=== PATIENT | female | born 1970 | race Caucasian/White ===

== ENCOUNTER 2016-10-16 13:25 | Observation (INO) ==
[2016-10-16] MEDS ORDERED: Magnesium Sulfate 20 gm/500mL 20 GM/500 ML IV.SOLN IVC SCH (14:00)
[2016-10-16 14:03] LABS: Basophils % 0.1 %; Eosinophils # 0.1 K/mcL (0.0-0.6); Eosinophils % 0.6 %; Hematocrit 38.5 % (35.3-44.9); Hemoglobin 13.2 g/dL (11.5-15.4); Immature Granulocytes % 0.6 % (0-4); Lymphocytes # 1.9 K/mcL (0.6-4.6); Lymphocytes % 13.1 %; Mean Corpuscular HGB Conc 34.3 g/dL (31.6-35.5); Mean Corpuscular Hemoglobin 31.1 pg (28.0-33.3); Mean Corpuscular Volume 90.8 fL (83.0-100.0); Mean Platelet Volume 9.8 fL (9.4-12.4); Monocytes # 0.6 K/mcL (0.0-1.3); Monocytes % 4.3 %; Neutrophils # 11.5 K/mcL (1.6-8.9); Platelet Count 319 K/mcL (140-400); Red Blood Count 4.24 M/mcL (3.82-4.97); Segmented Neutrophils % 81.3 %
[2016-10-16] MEDS ORDERED: Penicillin G Potassium 5,000,000 UNIT in D5% in Water (Mini-Bag+) 100 ML IVPB ONE (14:03)
[2016-10-16] MEDS: *HR* Labetalol 20 MG/4 ML SYRINGE IVP ONE ×2 (14:05→14:35)
[2016-10-16] MEDS ORDERED: Ringers Solution, Lactated 1,000 ML ONE (14:10)
[2016-10-16 14:14] LABS: Protein/Creatinine Ratio,Urine 0.59 mg/mg (0-0.20)
[2016-10-16] MEDS ORDERED: Ringers Solution, Lactated 1,000 ML IVC SCH (14:15)
[2016-10-16 14:17] LABS: Alanine Aminotransferase 11 Units/L (0-55); Aspartate Amino Transferase 12 Units/L (5-34); BUN/Creatinine Ratio 11 (6-26); Blood Urea Nitrogen 7 mg/dL (7-20); Lactate Dehydrogenase 150 Units/L (159-327); Uric Acid 3.7 mg/dL (2.6-6.0); eGFR For African Americans > 60 (> 60); eGFR For Non-African Americans > 60 (> 60)
[2016-10-16] MEDS ORDERED: *HR* Labetalol 20 MG/4 ML SYRINGE IVP ONE ×2 (14:25→14:34)
[2016-10-16] MEDS ORDERED: Betamethasone Acet/SodPhos 6 MG/ML MDV IM SCH (14:30)
--- NOTE | 2016-10-16 14:36 | OB/GYN Progress Note ---
Date of Encounter: 10/16/16 Time of Encounter: 14:31 - Assessment and Plan (1) 33 weeks gestation of Current Visit: Yes Status: Acute (2) Gestational diabetes Current Visit: Yes Status: Acute Qualifiers: Gestational diabetes mellitus control: unspecified Trimester: third trimester Qualified Code(s): O24.419 - Gestational diabetes mellitus in , unspecified control (3) Pre-eclampsia superimposed on chronic hypertension Current Visit: Yes Status: Acute Pt. started on Magnesium Sulfate, Betamethasone, antibiotic. Will transfer to [facility] (4) Tobacco use affecting in third trimester, antepartum Current Visit: Yes Status: Acute (5) Obesity affecting in third trimester Current Visit: Yes Status: Acute (6) Advanced maternal age (AMA), 40 years or greater Current Visit: Yes Status: Acute Subjective - Subjective Interval history: This is a 46-year-old female Ab1 with EDC of 12/01/16 at 33 weeks and 3 days who was sent from the [place] office to labor and delivery for elevated blood pressure. Her blood pressure in [place] was 186/106 and she had 3+ protein in the urine. She is a very high risk with advanced maternal age, gestational diabetes, maternal obesity, chronic hypertension, and the use of tobacco. Her 1 hour glucose tolerance test was elevated at 175, her three- hour glucose tolerance test had elevated 1 hour and 2 hour values. She is not on anything for her diabetes at the present time. She is randomly checking her glucose but admits that she is not following the recommended fasting and 2 hours postprandial testing. Many of her values that she has with her. Elevated. She has seen maternal medicine specialist on at least 2 occasions during this . She was a transfer of care at approximately 24 weeks. Recent ultrasound on 10/01/16 by [facility] noted an estimated weight at the 54th percentile with an JERONIMO of 14. With a vertex presentation. Objective - Vital Signs Vital Signs: Intake and Output 10/15/16 10/16/16 10/16/16 23:59 07:59 15:59 Other: Weight 103 kg Patient Weight 10/16/16 23:59 Weight 103 kg - Exam FHR: auscultation normal FHR comments: Appropriate for gestational age - Labs Labs: Abnormal lab results WBC 14.2 K/mcL (4.3-11.1) H 10/16/16 13:55 Neutrophils # 11.5 K/mcL (1.6-8.9) H 10/16/16 13:55 Lactate Dehydrogenase 150 Units/L (159-327) L 10/16/16 13:55 Protein/Creatinin Ratio 0.59 mg/mg (0-0.20) H 10/16/16 13:55 Urine Total Protein 58 mg/dL (1-14) H 10/16/16 13:55
== END 2016-10-16 15:14 | disposition short-term general hospital (02) ==
LOC: 1NENULAB

== ENCOUNTER 2016-11-15 09:57 | Inpatient (IN) ==
[2016-11-15] MEDS ORDERED: Naloxone 0.4 MG/ML INJ IVP PRN (10:48)
[2016-11-15] MEDS ORDERED: Famotidine 20 MG/2 ML VIAL IVP PRN (10:48)
[2016-11-15] MEDS ORDERED: Ondansetron 4 MG/2 ML VIAL IVP PRN (10:48)
[2016-11-15] MEDS ORDERED: Metoclopramide 10 MG/2 ML VIAL IVP PRN (10:48)
[2016-11-15] MEDS ORDERED: miSOPROStol 25 MCG TABLET VG PRN (10:48)
[2016-11-15] MEDS ORDERED: miSOPROStol 25 MCG TABLET PO PRN (10:58)
[2016-11-15] MEDS ORDERED: Ringers Solution, Lactated 1,000 ML IVC SCH (11:00)
[2016-11-15 11:01] LABS: Basophils % 0.2 %; Eosinophils # 0.1 K/mcL (0.0-0.6); Eosinophils % 0.7 %; Hematocrit 38.5 % (35.3-44.9); Hemoglobin 12.9 g/dL (11.5-15.4); Immature Granulocytes % 0.7 % (0-4); Lymphocytes # 1.5 K/mcL (0.6-4.6); Lymphocytes % 12.3 %; Mean Corpuscular HGB Conc 33.5 g/dL (31.6-35.5); Mean Corpuscular Hemoglobin 30.8 pg (28.0-33.3); Mean Corpuscular Volume 91.9 fL (83.0-100.0); Mean Platelet Volume 10.1 fL (9.4-12.4); Monocytes # 0.5 K/mcL (0.0-1.3); Platelet Count 259 K/mcL (140-400); Red Blood Count 4.19 M/mcL (3.82-4.97); Red Cell Distribution Width 14.8 % (11.5-14.5); Segmented Neutrophils % 82.1 %
[2016-11-15 11:13] LABS: BUN/Creatinine Ratio 15 (6-26); Blood Urea Nitrogen 9 mg/dL (7-20); Calcium 9.8 mg/dL (8.6-10.8); Carbon Dioxide 16 mEq/L (19-29); Chloride 108 mEq/L (98-109); Glucose 112 mg/dL (70-99); Osmolality,Calculated 283 (280-300); Potassium 3.7 mEq/L (3.5-4.5); Sodium 137 mEq/L (136-145); eGFR For African Americans > 60 (> 60); eGFR For Non-African Americans > 60 (> 60)
--- NOTE | 2016-11-15 11:36 | Anesthesia Evaluation PreOp ---
Date of Encounter: 11/15/16 Time of Encounter: 11:33 - Past History Planned Operation: brian Cardiac History: HTN Pulmonary History: Smoker (1 pack per day) FIRESTOPPER TECHNICIAN History: Denies Any Significant HX Other Medical History: Diabetes Type II (gestational diabetes, diet control) Anesthesia History: No Prior Anesthetic Complications, Past Anesthesia ([facility]) : Yes ( 37 weeks) Test: Positive Alcohol Use: none Drug use: opiates Medications and Allergies [place] 5-325 mg 5 mg PO PRN PRN 10/16/16 [History] Tablet 1 tab PO DAILY 10/16/16 [History] Labetalol 300 mg PO TID 11/15/16 [History] Procardia XL 30 mg PO DAILY 11/15/16 [History] Allergies No Known Allergies Allergy (Verified 10/16/16 13:38) - Meds/Allergy Pre-op Review Medications Reviewed: Yes Allergies Reviewed: Yes Beta Blockers on Current Med List: Yes (0200) Anesthesia Results - Labs 11/15/16 10:43 11/15/16 10:54 Anesthesia Exam O2 Sat Height 1.68 m Weight 103 kg bp 152/94 hr 86 Height: 66 Weight: 103 - HEENT Pupil (Motor): Pupils equal Mallampati: II Teeth: Normal Oral Opening: Greater than 3 - FIRESTOPPER TECHNICIAN LOC: Oriented FIRESTOPPER TECHNICIAN Motor: Normal RUE, Normal LUE, Normal RLE, Normal LLE, Normal Face FIRESTOPPER TECHNICIAN Sensory: Normal: RUE, LUE, RLE, LLE, Face - Cardiac Rhythm: Regular Murmur: None JVD: No Carotid Bruit: No - Pulmonary Breath Sounds: bilateral Clear Respiratory Effort: Symmetrical Anesthesia Assess/Plan ASA Score: 2 Modified Oksana Scale for Level of Consciousness: Cooperative, oriented, and tranquil Anesthetic Plan: Regional Autologous Blood: No Monitoring Plan: Standard Monitors
[2016-11-15] MEDS ORDERED: Epidural Premix (fent/bupiv) 110 ML EP ONE (14:51)
[2016-11-15] MEDS ORDERED: *HR* Ropivacaine/PF 0.2% 10 ML AMPUL ONE (14:51)
[2016-11-15] MEDS ORDERED: *HR* FentaNYL (PF) 100 MCG/2 ML VIAL ONE (14:51)
[2016-11-15] MEDS ORDERED: *HR* Ropivacaine/PF 0.2% 10 ML AMPUL EP ONE (15:31)
[2016-11-15] MEDS ORDERED: *HR* FentaNYL (PF) 100 MCG/2 ML VIAL EP ONE (15:31)
[2016-11-15] MEDS ORDERED: EPHEDrine 50 MG/ML VIAL IVP PRN (15:31)
--- NOTE | 2016-11-15 15:35 | Anesthesia Procedures ---
Date of Encounter: 11/15/16 Time of Encounter: 15:33 Procedures: Anesthesia - Epidural/Spinal Patient ID/Chart reviewed: Yes Patient examined: Yes OB Eval: : 4 OB Eval: Hx Para: 3 OB Eval: Contractions: Non-stressed pattern Consent Obtained: Yes Supplemental Oxygen: None/Room Air Supplemental Oxygen Rate (L/min): 2 Site Prep: Aseptic Technique Patient position: upright Local Anesthetic: Lidocaine 1% Amount of Local Anesthetic used: 3 Touhy Needle Gauge: 18 Touhy Needle Depth (cm): 6 Catheter Depth at Skin (cm): 12 Test Dose (1.5% Lido + Epi): Volume given (mls): 3 Test Dose Result: Negative Loading Dose: 0.25% Marcaine (mls): 6 Loading Dose: Fentanyl (mcg): 100 Loading Dose: Other: 2ml nss Loading Dose Administered: Thru Touhy Needle Infusion Med: 0.125% Bupivacaine w/ 2 mcg/ml Fentanyl Infusion Rate (mls/hr): [address]: Tegaderm Interspace Used: L3-L4 Loss of Resistance (ANDRY): Yes Blood: No CSF: No Paresthesia: No Procedure: strict asepsis, good ANDRY, FHR unchanged
[2016-11-15] MEDS ORDERED: Epidural Premix (fent/bupiv) 110 ML EP SCH (15:45)
--- NOTE | 2016-11-15 16:55 | OB/GYN History & Physical ---
Date of Encounter: 11/15/16 Time of Encounter: 16:52 Assessment and Plan (1) 37 or more weeks gestation of Current visit: Yes Status: Acute Pt with favorable cervix and worsening htn and proteinuria. Will proceed with induction of labor. Pt aware of risks of prematurity and desires to proceed with induction. (2) Pre-eclampsia superimposed on chronic hypertension Current visit: No Status: Acute History of Present Illness Chief complaint: Here for induction secondary to hypertension and proteinuria HPI: Ms. Allen is a 46 year old female female at 37w3d presents for induction secondary to labile hypertension and proteinuria. Pt with chronic htn that has been increasingly difficult to control. She has been admitted to [facility] and has significant proteinuria. She has been having worsening headaches and lower extremity edema. Past Med Surg Social Fam HX - Past Medical History Source: patient, old records reviewed Medical history: hypertension Psychiatric history: depression - Social History Smoking Status: Current every day smoker Packs per day: 1 Smokeless Tobacco Status: No Alcohol use: none Drug use: opiates - Family History Father Living Status: Still Living Hx Family Endocrine Disorder: Yes (DIABETES) Obstetrical History - Pregnancies : 5 Para: 3 Medications and Allergies [place] 5-325 mg 5 mg PO PRN PRN 10/16/16 [History] Tablet 1 tab PO DAILY 10/16/16 [History] Labetalol 300 mg PO TID 11/15/16 [History] Procardia XL 30 mg PO DAILY 11/15/16 [History] Allergies No Known Allergies Allergy (Verified 10/16/16 13:38) Exam - Constitutional Constitutional: well nourished - HEENT HEENT: EOMI, PERRL - Neck Neck exam: full ROM - Lungs Respiratory exam: CTAB - Cardiovascular Cardiovascular exam: RRR - Extremities Extremities exam: full ROM Deep Tendon Reflex Grade: 2+ Normal - Cervix Dilation: 4 Effacement: 100 Station: -1 - Uterus Uterus exam: Present: enlarged Results Result Diagrams: 11/15/16 10:43 11/15/16 10:54 Abnormal lab results WBC 12.2 K/mcL (4.3-11.1) H 11/15/16 10:43 RDW 14.8 % (11.5-14.5) H 11/15/16 10:43 Neutrophils # 10.0 K/mcL (1.6-8.9) H 11/15/16 10:43 Carbon Dioxide 16 mEq/L (19-29) L 11/15/16 10:54 Glucose 112 mg/dL (70-99) H 11/15/16 10:54 All other labs normal. - VTE Reasons for not Prescribing Prophylaxis: Treatment not Indicated - Low risk for VTE
--- NOTE | 2016-11-15 17:03 | OB Labor Progress Note ---
Date of Encounter: 11/15/16 Time of Encounter: 17:01 Labor Progress Note - Subjective Subjective: Pt comfortable with epidural. - Cervix Cervix: 4/100/-1 - Heart Tones Heart Tones: RNST - Interventions Interventions: AROM clear - Plan Plan: Expect
[2016-11-15] MEDS: Oxytocin 20 units/ LR 1000 mL 20 UNIT/1,000 ML BAG IVC SCH (18:43)
--- NOTE | 2016-11-15 23:01 | OB/GYN Procedure Note ---
Delivery - Delivery Date: 11/15/16 Intrapartum events: none Delivery induction: oxytocin, misoprostol Delivery monitor: external FHT, internal uterine Anesthesia: epidural Estimated Blood Loss: 200 - (s) Infant A Infant Delivery Date: 11/15/16 Infant Delivery Time: 22:31 Presentation: vertex Position: SHABBIR Route of delivery: Gender: Male Viability: Viable Pounds: 6 Ounces: 3 at 1 minute: 8 at 5 mins: 9 Shoulder Dystocia: not encountered Specimens collected: cord blood Placenta: spontaneous Cord: 3 umbilical vessels, delivered through nuchal ( of liveborn male through loose nucal without complication.) - Repair Episiotomy: none Laceration Description: None - Complications Delivery complications: none, uterine atony Delivery comments: Pt was given Cytotec 400 mcg and 25 mg of Hemobate secondary to atony
[2016-11-15] MEDS ORDERED: *HR* Labetalol 20 MG/4 ML SYRINGE IVP ONE (23:22)
[2016-11-15] MEDS: *HR* Labetalol 20 MG/4 ML SYRINGE IVP ONE (23:27)
[2016-11-16] MEDS: Oxytocin 20 units/ LR 1000 mL 20 UNIT/1,000 ML BAG IVC SCH
[2016-11-16] MEDS ORDERED: *HR* Labetalol 20 MG/4 ML SYRINGE IVP ONE ×2 (00:40→00:46)
[2016-11-16] MEDS: *HR* Labetalol 20 MG/4 ML SYRINGE IVP ONE (00:42)
[2016-11-16] MEDS ORDERED: Acetaminophen 325 MG TABLET PO PRN (00:57)
[2016-11-16] MEDS ORDERED: Oxytocin 20 units/ LR 1000 mL 20 UNIT/1,000 ML BAG IVC ONE (00:57)
[2016-11-16] MEDS ORDERED: Rho Immune Globulin 1,500 UNIT SYRINGE IM PRN (00:57)
[2016-11-16] MEDS ORDERED: Oxytocin 20 units/ LR 1000 mL 20 UNIT/1,000 ML BAG IVC SCH (00:57)
[2016-11-16] MEDS ORDERED: Measles/Mumps/Rubella Vacc 0.5 ML VIAL SQ PRN (00:57)
[2016-11-16] MEDS: NIFEdipine XL (24 HR) 30 MG TAB.ER.24 PO SCH (01:34)
[2016-11-16] MEDS: Ibuprofen 600 MG TABLET PO PRN ×3 (02:21→14:58)
[2016-11-16] MEDS: *HR* HYDROcodone/Acet 5/325 mg TABLET PO PRN ×3 (04:30→19:37)
[2016-11-16] MEDS ORDERED: NIFEdipine XL (24 HR) 30 MG TAB.ER.24 PO STA (06:18)
[2016-11-16 06:51] LABS: Alanine Aminotransferase 8 Units/L (0-55); Aspartate Amino Transferase 14 Units/L (5-34); BUN/Creatinine Ratio 11 (6-26); Blood Urea Nitrogen 6 mg/dL (7-20); Lactate Dehydrogenase 177 Units/L (159-327); Uric Acid 3.5 mg/dL (2.6-6.0); eGFR For African Americans > 60 (> 60); eGFR For Non-African Americans > 60 (> 60)
[2016-11-16 07:07] LABS: Basophils % 0.2 %; Eosinophils % 0.1 %; Hematocrit 37.2 % (35.3-44.9); Hemoglobin 12.7 g/dL (11.5-15.4); Immature Granulocytes % 1.4 % (0-4); Lymphocytes # 1.9 K/mcL (0.6-4.6); Lymphocytes % 8.9 %; Mean Corpuscular HGB Conc 34.1 g/dL (31.6-35.5); Mean Corpuscular Volume 90.7 fL (83.0-100.0); Mean Platelet Volume 10.5 fL (9.4-12.4); Monocytes # 0.7 K/mcL (0.0-1.3); Monocytes % 3.1 %; Neutrophils # 18.6 K/mcL (1.6-8.9); Platelet Count 266 K/mcL (140-400); Red Cell Distribution Width 14.8 % (11.5-14.5); Segmented Neutrophils % 86.3 %
[2016-11-16] MEDS ORDERED: miSOPROStol 100 MCG TABLET PO ONE (08:30)
[2016-11-16] MEDS ORDERED: NIFEdipine XL (24 HR) 30 MG TAB.ER.24 PO SCH (09:00)
[2016-11-16] MEDS: Prenatal Vit/FA 1 EACH TABLET PO SCH (09:14)
--- NOTE | 2016-11-16 10:07 | OB/GYN Progress Note ---
Date of Encounter: 11/16/16 Time of Encounter: 10:05 - Assessment and Plan (1) Vaginal delivery Current Visit: Yes Status: Acute Patient meeting milestones (2) Pre-eclampsia superimposed on chronic hypertension Current Visit: No Status: Acute Continue observation. Patient currently well controlled on by mouth medication Subjective - Subjective Principal diagnosis: PPD1 Interval history: The patient is day 1 vaginal delivery, induction for chronic hypertension with superimposed preeclampsia. She denies any headache, blurred vision or epigastric pain. She is requesting medication for perineal discomfort. Patient reports: appetite normal, voiding normally, pain well controlled, ambulating normally : doing well Objective - Latest Vital Signs Latest vital signs: Vital Signs Temp Pulse Resp BP Pulse Ox 11/16/16 07:40 98.1 F 92 18 114/68 97 11/16/16 06:05 82 176/104 11/16/16 03:55 97.9 F 86 16 152/81 97 11/16/16 03:00 16 11/16/16 02:57 98.3 F 84 16 162/96 97 11/16/16 02:26 81 184/127 11/16/16 02:00 97.8 F 78 16 183/125 98 Intake and Output 11/15/16 11/16/16 11/16/16 23:59 07:59 15:59 Intake Total 999 / 999 1 / 1 350 / 350 Output Total 450 / 450 500 / 500 Balance 999 / 999 -449 / -449 -150 / -150 Intake: IV Fluids 999 / 999 1 / 1 Pitocin 20 unit In 1,000 999 / 999 1 / 1 ml @ Titrate IVC .Q0M [facility] Rx#:[id number] Oral 350 / 350 Output: Urine 450 / 450 500 / 500 Other: Stool Size Moderate - Exam Extremities: Present: normal. Absent: tenderness, edema Abdomen: Present: normal appearance, soft. Absent: tenderness Uterus: Present: firm. Absent: bogginess, tenderness Uterus Position: 2 Fingers Below Umbilicus, Midline - Labs Labs: Laboratory Results - last 24 hr 11/15/16 11/15/16 11/16/16 10:43 10:54 06:20 WBC 12.2 H 21.5 H D RBC 4.19 4.10 Hgb 12.9 12.7 Hct 38.5 37.2 MCV 91.9 90.7 MCH 30.8 31.0 MCHC 33.5 34.1 RDW 14.8 H 14.8 H Plt Count 259 266 MPV 10.1 10.5 Immature Gran % 0.7 1.4 Seg Neutrophils % 82.1 86.3 Lymphocytes % 12.3 8.9 Monocytes % 4.0 3.1 Eosinophils % 0.7 0.1 Basophils % 0.2 0.2 Neutrophils # 10.0 H 18.6 H Lymphocytes # 1.5 1.9 Monocytes # 0.5 0.7 Eosinophils # 0.1 0.0 Basophils # 0.0 0.0 Sodium 137 Potassium 3.7 Chloride 108 Carbon Dioxide 16 L BUN 9 Creatinine 0.62 Est GFR ( Amer) > 60 Est GFR (Non-Af Amer) > 60 BUN/Creatinine Ratio 15 Glucose 112 H Calculated Osmolality 283 Uric Acid Calcium 9.8 AST ALT Lactate Dehydrogenase 11/16/16 06:21 WBC RBC Hgb Hct MCV MCH MCHC RDW Plt Count MPV Immature Gran % Seg Neutrophils % Lymphocytes % Monocytes % Eosinophils % Basophils % Neutrophils # Lymphocytes # Monocytes # Eosinophils # Basophils # Sodium Potassium Chloride Carbon Dioxide BUN 6 L Creatinine 0.56 L Est GFR ( Amer) > 60 Est GFR (Non-Af Amer) > 60 BUN/Creatinine Ratio 11 Glucose Calculated Osmolality Uric Acid 3.5 Calcium AST 14 ALT 8 Lactate Dehydrogenase 177 - Allied health notes Allied health notes reviewed: nursing
[2016-11-17] MEDS: *HR* HYDROcodone/Acet 5/325 mg TABLET PO PRN ×3 (03:39→20:53)
[2016-11-17] MEDS: Prenatal Vit/FA 1 EACH TABLET PO SCH (07:46)
[2016-11-17] MEDS: Ibuprofen 600 MG TABLET PO PRN (07:46)
[2016-11-17] MEDS: NIFEdipine XL (24 HR) 30 MG TAB.ER.24 PO SCH (07:47)
--- NOTE | 2016-11-17 10:12 | OB/GYN Progress Note ---
Date of Encounter: 11/17/16 Time of Encounter: 10:10 - Assessment and Plan (1) Vaginal delivery Current Visit: Yes Status: Acute Pt meeting milestones. (2) Pre-eclampsia superimposed on chronic hypertension Current Visit: No Status: Acute BP 186/110 prior to medication this am. Repeat after morning meds 116/73. Pt denies s/sx preeclampsia. Dr. Lacy notified. (3) Chronic prescription opiate use Current Visit: Yes Status: Acute Pt receiving Redbird while inpatient. No rx will be provided on discharge. She will need to follow-up with her PCP. Subjective - Subjective Interval history: Pt reports pain well controlled with Motrin and Redbird. She was on Redbird prior to admission for chronic pain. She denies OLIVIA, vision changes, or RUQ pain. Patient reports: appetite normal, voiding normally, pain well controlled, ambulating normally [place]: doing well, in NICU Objective - Latest Vital Signs Latest vital signs: Vital Signs Temp Pulse Resp BP Pulse Ox 11/17/16 09:28 84 116/73 11/17/16 08:15 97.8 F 90 16 186/110 99 11/17/16 03:41 97.6 F 86 14 155/95 100 11/17/16 00:50 98.0 F 87 12 146/85 99 11/16/16 20:45 82 138/87 11/16/16 19:45 98.4 F 85 12 175/104 98 11/16/16 16:20 98.0 F 88 16 130/88 97 Intake and Output 11/16/16 11/17/16 11/17/16 23:59 07:59 15:59 Intake Total 100 / 100 240 / 240 Balance 100 / 100 240 / 240 Intake: Oral 100 / 100 240 / 240 Other: Meal Breakfast Percent of Meal Consumed 100% # Voids 2 Weight 99.8 kg Patient Weight 11/17/16 23:59 Weight 99.8 kg - Exam Lungs: bilateral: normal Chest: Normal S1, Normal S2 Extremities: Present: edema (mild bilat) Abdomen: Present: soft Uterus: Present: firm - Labs Labs: Laboratory Results - last 24 hr 11/15/16 23:47 POC Glucose 87
[2016-11-17] MEDS ORDERED: Ondansetron ODT 4 MG TAB.RAPDIS SL PRN (22:15)
[2016-11-18] MEDS: Prenatal Vit/FA 1 EACH TABLET PO SCH (07:49)
[2016-11-18] MEDS: NIFEdipine XL (24 HR) 30 MG TAB.ER.24 PO SCH ×2 (07:49→22:13)
[2016-11-18] MEDS: *HR* HYDROcodone/Acet 5/325 mg TABLET PO PRN ×2 (07:49→15:49)
--- NOTE | 2016-11-18 08:11 | OB/GYN Progress Note ---
Date of Encounter: 11/18/16 Time of Encounter: 08:06 - Assessment and Plan (1) Vaginal delivery Current Visit: Yes Status: Acute 1. S/P vaginal delivery Patient doing well. Pain well controlled. Continue current regimen. Anticipate discharge tomorrow. PCP: Dr. Dasha Yousif. 2. Hypertension Chronic benign essential hypertension. Previously (prior to ) on Lisinopril 20mg PO QDaily + HCTZ 12.5mg PO Qdaily. Will adjust her current regimen to: Labetolol 400mg TID, Nicardipine 30mg BID. Vitals Q4hr. May adjust antihypertensive regimen pending repeat BP. 3. Anxiety Previously (prior to ) on xanex 1mg PO BID. She notes return of anxiety symptoms. Will provide PRN while inpatient. 4. Chronic prescription opioid use Home medications of Hydrocodone/APAP 5/325 Q4-6hrs PRN pain + Tizanidine 4mg PO Q8hr PRN muscle spasm. She does not have complaint of muscle spasm. Will continue Hydrocodone/APAP 5/325 Q6 PRN while inpatient. Patient has her prescription at home; no need for outpatient prescription. (2) Hypertension Current Visit: Yes Status: Acute as above Qualifiers: Hypertension type: essential hypertension Qualified Code(s): I10 - Essential (primary) hypertension (3) Anxiety Current Visit: Yes Status: Acute as above (4) Chronic prescription opiate use Current Visit: Yes Status: Acute as above. Subjective - Subjective Principal diagnosis: s/p vaginal delivery Interval history: Mrs. Allen continues to do well. Dieting and toileting without compliant. Ambulating without issue. She notes feelings of anxiety which are intermittantly returning. She was self managing her anxiety without xanex during the by staying at home throughout the day. She was previously medicated on antihypertensive and anxiolytic; unsure of specific medication, dose, or daily administration. She fills her medications at the same pharmacy - [facility] in [place], [place]. Otherwise, she has no complaints. No headache , nausea, dizziness, weakness. No vaginal bleeding or discharge. Baby is doing well; bottle feeding, anticipated pediatric discharge tomorrow. Patient reports: appetite normal, voiding normally, pain well controlled, ambulating normally [place]: doing well, bottle feeding Objective - Latest Vital Signs Latest vital signs: Vital Signs Temp Pulse Resp BP Pulse Ox 11/18/16 03:34 97.7 F 83 16 133/92 96 11/17/16 23:20 97.9 F 86 16 152/89 98 11/17/16 21:59 152/101 11/17/16 20:53 16 166/102 11/17/16 20:40 98.3 F 97 16 177/103 99 11/17/16 15:55 98.5 F 98 18 156/87 11/17/16 14:48 94 131/91 11/17/16 13:46 87 159/100 11/17/16 11:27 98 F 90 16 164/83 11/17/16 09:28 84 116/73 11/17/16 08:15 97.8 F 90 16 186/110 99 Intake and Output 11/17/16 11/18/16 11/18/16 23:59 07:59 15:59 Intake Total 420 / 420 300 / 300 Output Total 900 / 900 1500 / 1500 Balance -480 / -480 -1200 / -1200 Intake: Oral 420 / 420 300 / 300 Output: Urine 900 / 900 1500 / 1500 Other: Meal Dinner Percent of Meal Consumed 100% Weight 100.2 kg Patient Weight 11/18/16 23:59 Weight 100.2 kg - Exam Lungs: bilateral: normal Chest: Normal S1, Normal S2 Extremities: Present: normal Abdomen: Present: normal appearance, soft. Absent: rigidity, gravid, distention Uterus: Present: normal, tenderness Uterus Position: 3 Fingers Below Umbilicus
[2016-11-18] MEDS: ALPRAZolam 1 MG TABLET PO PRN (15:49)
[2016-11-18] MEDS ORDERED: Benzocaine/Menthol 56 GM AEROSOL SPRAY TP ONE (17:34)
[2016-11-19] MEDS: ALPRAZolam 1 MG TABLET PO PRN (03:23)
[2016-11-19] MEDS: Prenatal Vit/FA 1 EACH TABLET PO SCH (08:18)
[2016-11-19] MEDS: NIFEdipine XL (24 HR) 30 MG TAB.ER.24 PO SCH (08:18)
[2016-11-19] MEDS: *HR* HYDROcodone/Acet 5/325 mg TABLET PO PRN (08:20)
[2016-11-19 11:47] VITALS: BP 138/94
--- NOTE | 2016-11-19 14:52 | Internal Medicine Consult Note ---
<Alexandre Bautista - Last Filed: 11/19/16 15:26> Date of Encounter: 11/19/16 Internal Medicine - CN: HPI - Data of Consult Requesting Physician: Clyde Graf MD - Consult Narrative History of present illness: Ms. Allen is a 46 year old female Internal Medicine - CN: Meds [place] 5-325 mg 5 mg PO PRN PRN 10/16/16 [History] Tablet 1 tab PO DAILY 10/16/16 [History] Docusate [Colace] 100 mg PO BID #60 capsule 11/19/16 [Rx] HydrOXYzine Pamoate [Vistaril] 50 mg PO HS PRN #15 capsule 11/19/16 [Rx] Labetalol HCl 400 mg PO TID #180 tablet 11/19/16 [Rx] NIFEdipine XL (24 HR) [Procardia XL] 30 mg PO BID #60 tab.er.24 11/19/16 [Rx] Procardia XL 30 mg PO DAILY #30 11/19/16 [Rx] Allergies No Known Allergies Allergy (Verified 10/16/16 13:38) Internal Medicine - CN: Exam - Constitutional Vitals: Temp Pulse Resp BP Pulse Ox 98.6 F 84 19 138/94 98 11/19/16 11:45 11/19/16 11:45 11/19/16 11:45 11/19/16 11:45 11/19/16 11:45 Internal Medicine - CN: Reslt - Labs CBC & Chem 7: 11/16/16 06:20 11/16/16 06:21 Consult Discharge Plan - Plan Referrals: Clyde Graf MD [Partnered Physician] - Dasha Yousif MD [Primary Care Provider] - Prescriptions: Docusate [Colace] 100 mg PO BID #60 capsule HydrOXYzine Pamoate [Vistaril] 50 mg PO HS PRN #15 capsule PRN Reason: Anxiety Labetalol HCl 400 mg PO TID #180 tablet NIFEdipine XL (24 HR) [Procardia XL] 30 mg PO BID #60 tab.er.24 Procardia XL 30 mg PO DAILY #30 - Attending Attestation I have independently reviewed this patient. I have discussed this patient with MAGGIE Mcdonald, and his documentation reflects the plan of care with the following addendum 46 Y/O F with chronic HTN, 4 days post- with HTN slightly worsened post- , now controlled on home medications. Agree with continuing same medications at home and follow up with her PCP. Rest of details as in kosher sealer documentation. <Deo Mcdonald - Last Filed: 11/19/16 15:46> Date of Encounter: 11/19/16 Time of Encounter: 14:25 - Assessment and Plan (1) Hypertension Current Visit: Yes Status: Chronic Assessment and plan: Assess: Patient has history of essential hypertension which was well-controlled in the past until she reached 33 weeks of . She reports that her hypertension medication was changed at [facility] from methyldopa to procardia XL and labetalol. She experienced elevated BP readings during her admission for labor and delivery , but her BP readings are now trending downward. Patient reports her BP improved once she was given her anxiolytic medication yesterday. Reports she feels much better and more like herself now post-administration of Xanax. Plan: Continue with Procardia and labetalol until she sees her PCP (Dr. Dasha Yousif). Report any adverse effects or incidents to PCP. Follow-up with PCP at next scheduled appt. unless she requires being seen sooner. Continue with anxiolytic. Continue home meds as prescribed. Monitor BP at home, preferably keeping a diary of daily readings. Internal Medicine - CN: HPI - Data of Consult Requesting Physician: Clyde Graf MD - Consult Narrative Reason for consult: BP clearance for discharge History of present illness: Ms. Allen is a 46 year old female who is four days post- with a history of essential hypertension, anxiety, and chronic prescription opioid use for muscle spasms. She has a history during this admission of elevated blood pressure which seems to be resolving after receiving her anxiolytic medication ( Xanax). Her BP is now trending downward and she is expressing the desire to return home. Past Med Surg Social Fam HX - Past Medical History Medical history: hypertension Psychiatric history: anxiety, depression - Past Surgical History Surgical History: no surgical history - Social History Smoking Status: Current every day smoker Packs per day: 1 Smokeless Tobacco Status: No Alcohol use: none Drug use: opiates - Family History Father Living Status: Still Living Hx Family Endocrine Disorder: Yes (DIABETES) All systems: reviewed and no additional remarkable complaints except as stated - EENT Eyes: as per HPI Ears: as per HPI Nose, mouth and throat: as per HPI - Breasts Breasts: as per HPI - Cardiovascular Cardiovascular ROS IM: as per HPI Additional comments: Patient has brief history during admission of elevated BP which may be due to labor and delivery, not taking her anxiolytics, and general anxiety related to post- status. - Respiratory Respiratory: as per HPI - Gastrointestinal Gastrointestinal: as per HPI - Genitourinary Genitourinary: as per HPI - Musculoskeletal Musculoskeletal ROS IM: as per HPI Additional comments: No complaints of muscle spasms at this time. - Integumentary Integumentary IM: as per HPI - Neurological Neurological ROS: as per HPI - Psychiatric Psychiatric: as per HPI - Endocrine Endocrine IM: as per HPI - Hematologic/Lymphatic Hematologic/Lymphatic: as per HPI - Allergic/Immunologic Allergic/Immunologic: as per HPI Internal Medicine - CN: Exam - Constitutional Vitals: Temp Pulse Resp BP Pulse Ox 98.6 F 84 19 138/94 98 11/19/16 11:45 11/19/16 11:45 11/19/16 11:45 11/19/16 11:45 11/19/16 11:45 General appearance IM: Present: cooperative, A&O X 3, pleasant, no acute distress, answers questions appropriately - Head Head exam: Present: atraumatic - Eye Eye exam: Present: normal appearance Pupils: Present: PERRL - ENT ENT exam: Present: normal exam - Neck Neck exam general surgery: Present: normal inspection - Respiratory Additional comments: Patient at ease, no visible distress, and breathing normally on room air. - Cardiovascular Additional comments: Exam normal with regular HR. - Rectal Rectal exam: Present: deferred - Additional comments: exam deferred. - Neurological Exam Neurological exam: Present: alert, oriented X3, no focal deficits - Psychiatric Psychiatric exam: Present: normal affect, normal mood - Skin Skin exam IM: Present: dry, warm Internal Medicine - CN: Reslt - Labs CBC & Chem 7: 11/16/16 06:20 11/16/16 06:21
--- NOTE | 2016-11-19 14:53 | Discharge Summary ---
Date of Encounter: 11/19/16 Time of Encounter: 14:51 - Discharge Diagnosis (1) Vaginal delivery Priority: Primary Status: Acute (2) Pre-eclampsia superimposed on chronic hypertension Priority: Secondary Status: Acute (3) Chronic prescription opiate use Priority: Secondary Status: Acute - Discharge Medications Prescriptions: Docusate [Colace] 100 mg PO BID #60 capsule HydrOXYzine Pamoate [Vistaril] 50 mg PO HS PRN #15 capsule PRN Reason: Anxiety Labetalol HCl 400 mg PO TID #180 tablet NIFEdipine XL (24 HR) [Procardia XL] 30 mg PO BID #60 tab.er.24 Procardia XL 30 mg PO DAILY #30 Home Medications: Vernalis 5-325 mg 5 mg PO PRN PRN 10/16/16 [History] Tablet 1 tab PO DAILY 10/16/16 [History] Docusate [Colace] 100 mg PO BID #60 capsule 11/19/16 [Rx] HydrOXYzine Pamoate [Vistaril] 50 mg PO HS PRN #15 capsule 11/19/16 [Rx] Labetalol HCl 400 mg PO TID #180 tablet 11/19/16 [Rx] NIFEdipine XL (24 HR) [Procardia XL] 30 mg PO BID #60 tab.er.24 11/19/16 [Rx] Procardia XL 30 mg PO DAILY #30 11/19/16 [Rx] Allergies/Adverse Reactions: Allergies No Known Allergies Allergy (Verified 10/16/16 13:38) Data Procedures and tests throughout hospitalization: Laboratory Tests 11/15/16 11/15/16 11/15/16 10:43 10:54 23:47 WBC 12.2 H RBC 4.19 Hgb 12.9 Hct 38.5 MCV 91.9 MCH 30.8 MCHC 33.5 RDW 14.8 H Plt Count 259 MPV 10.1 Immature Gran % 0.7 Seg Neutrophils % 82.1 Lymphocytes % 12.3 Monocytes % 4.0 Eosinophils % 0.7 Basophils % 0.2 Neutrophils # 10.0 H Lymphocytes # 1.5 Monocytes # 0.5 Eosinophils # 0.1 Basophils # 0.0 Sodium 137 Potassium 3.7 Chloride 108 Carbon Dioxide 16 L BUN 9 Creatinine 0.62 Est GFR ( Amer) > 60 Est GFR (Non-Af Amer) > 60 BUN/Creatinine Ratio 15 Glucose 112 H POC Glucose 87 Calculated Osmolality 283 Uric Acid Calcium 9.8 AST ALT Lactate Dehydrogenase 11/16/16 11/16/16 06:20 06:21 WBC 21.5 H D RBC 4.10 Hgb 12.7 Hct 37.2 MCV 90.7 MCH 31.0 MCHC 34.1 RDW 14.8 H Plt Count 266 MPV 10.5 Immature Gran % 1.4 Seg Neutrophils % 86.3 Lymphocytes % 8.9 Monocytes % 3.1 Eosinophils % 0.1 Basophils % 0.2 Neutrophils # 18.6 H Lymphocytes # 1.9 Monocytes # 0.7 Eosinophils # 0.0 Basophils # 0.0 Sodium Potassium Chloride Carbon Dioxide BUN 6 L Creatinine 0.56 L Est GFR ( Amer) > 60 Est GFR (Non-Af Amer) > 60 BUN/Creatinine Ratio 11 Glucose POC Glucose Calculated Osmolality Uric Acid 3.5 Calcium AST 14 ALT 8 Lactate Dehydrogenase 177 Date of admission: 11/15/16 09:57 Primary care physician: Dasha Mohamud Consults: 11/16/16 00:57 Consult to Structural Layout Worker [CONS] Routine Comment: Vaginal delivery, consult needed 11/19/16 06:58 Consult to Hospitalist [CONS] Routine Consulting Provider: Hospitalist Kirsten Reason for Consult: HTN Call Completed: Yes Discharging clinician: Bailee Lutz Anticipated date of discharge: 11/19/16 - Patient Status Disposition: Home, Self-Care Condition: Good Functional capacity at discharge: independent ambulation Overall status at discharge: patient is progressing back to baseline - Discharge Instructions Follow Up With: Dasha Yousif MD [Primary Care Provider] - Clyde Graf MD [Partnered Physician] - - Diet and Activity Activity: increase activity as tolerated Diet: regular diet Hospital Course Reason for admission: induction of labor, pre-eclampsia Delivery: Episiotomy: none Laceration: none Other procedures: none complications: uterine atony, other (hypertension with labile blood pressures) Discharge diagnosis: IUP at term delivered baby: male Hospital course: - Delivery Date: 11/15/16 Intrapartum events: none Delivery induction: oxytocin, misoprostol Delivery monitor: external FHT, internal uterine Anesthesia: epidural Estimated Blood Loss: 200 - (s) Infant A Delivery Date: 11/15/16 Infant Delivery Time: 22:31 Presentation: vertex Position: SHABBIR Route of delivery: Gender: Male Viability: Viable Pounds: 6 Ounces: 3 at 1 minute: 8 at 5 mins: 9 Shoulder Dystocia: not encountered Specimens collected: cord blood Placenta: spontaneous Cord: 3 umbilical vessels, delivered through nuchal ( of liveborn male through loose nucal without complication.) - Repair Episiotomy: none Laceration Description: None - Complications Delivery complications: none, uterine atony Delivery comments: Pt was given Cytotec 400 mcg and 25 mg of Hemobate secondary to atony Time Attestation: Total time spent providing and/or coordinating discharge services: Time Spent: Less than 30 minutes Exam - Constitutional Vitals: Temp Pulse Resp BP Pulse Ox 98.6 F 84 19 138/94 98 11/19/16 11:45 11/19/16 11:45 11/19/16 11:45 11/19/16 11:45 11/19/16 11:45 General appearance IM: A&O X 3, pleasant, no acute distress - Respiratory Respiratory exam: Present: CTAB - Cardiovascular Cardiovascular exam IM: Present: RRR, +S1, +S2 - GI/Abdominal GI/Abdominal exam IM: soft - Rectal Rectal exam: deferred - Uterine Tone: Firm - Extremities Exam Extremities exam IM: Present: pedal edema (mild edema) - Neurological Exam Neurological exam: normal gait, reflexes normal - Psychiatric Additional comments: Pt reports anxiety. She denies SI/HI or thoughts of harming herself or her baby.
== END 2016-11-19 15:50 | disposition home or self-care (01) | DRG 560 ==
LOC: 1NENULAB 09:57 → 1NENUOBS 11-16 00:53
PROVIDERS: ADMIT Obstetrics & Gynecology; ATTEND Obstetrics & Gynecology